=== PATIENT | female | born 1980 | race Caucasian/White ===

== ENCOUNTER 2020-12-25 13:23 | Emergency (ER) | payer OTHER ==
[~2020-12-25] VITALS: Ht 160 cm; Wt 104.3 kg
[2020-12-25 13:23] VITALS: BP_SYST 136
[2020-12-25] MEDS ORDERED: NACL 0.9% 1,000 ML IV ONE ×2 (13:45→15:15)
[2020-12-25 13:59] LABS: BASOPHILS % (AUTO) 0.3 % (0.0-2.0); EOSINOPHILS # (AUTO) 0.2 K/uL (0.0-0.4); EOSINOPHILS % (AUTO) 4.6 % (0.0-4.0); HEMATOCRIT 29.2 % (36-48); HEMOGLOBIN 10.1 g/dL (12.0-16.0); LYMPHOCYTES # (AUTO) 0.6 K/uL (1.0-5.5); LYMPHOCYTES % (AUTO) 10.9 % (20.5-51.5); MEAN CORPUSCULAR HEMOGLOBIN 31 pg (27-31); MEAN CORPUSCULAR HGB CONC 35 % (32-36); MEAN CORPUSCULAR VOLUME 91 fL (79.0-98.0); MONOCYTES # (AUTO) 0.6 K/uL (0.0-1.0); MONOCYTES % (AUTO) 10.7 % (1.7-9.3); NEUTROPHILS # (AUTO) 3.9 K/uL (1.8-7.7); NEUTROPHILS % (AUTO) 73.5 % (40.0-70.0); PLATELET COUNT (AUTO) 182 K/uL (130-430); RED BLOOD CELL COUNT(AUTO) 3.22 MIL/uL (4.2-6.2); RED CELL DISTRIBUTION WIDTH 13.9 % (9.0-15.0); WHITE BLOOD COUNT (AUTO) 5.3 K/uL (4.8-10.8)
[2020-12-25 14:14] LABS: CALCIUM 8.1 mg/dL (8.4-11.0); INR 0.9 (0.8-1.2); POTASSIUM 4.7 mmol/L (3.5-5.1); PROTHROMBIN TIME 9.3 SECS (9.5-12.5)
[2020-12-25] MEDS ORDERED: ONDANSETRON HCL 4 MG/2 ML VIAL IVP ONE (14:15)
[2020-12-25 14:28] LABS: ALBUMIN 2.8 g/dL (3.4-4.8); TOTAL BILIRUBIN 0.6 mg/dL (0.0-1.0)
[2020-12-25 14:30] LABS: CREATININE 10.85 mg/dL (0.55-1.30)
[2020-12-25] MEDS ORDERED: MORPHINE 2 MG/ML INJ. SYRINGE IVP ONE ×2 (14:45→15:30)
[2020-12-25] MEDS ORDERED: ONDA-8 TL (15:48)
[2020-12-25 16:27] VITALS: BP_SYST 124
== END 2020-12-25 16:27 | disposition home or self-care (01) ==
LOC: SED 13:23
DX: R11.2 Nausea with vomiting, unspecified (principal); R19.7 Diarrhea, unspecified; E11.22 Type 2 diabetes mellitus with diabetic chronic kidney disease; I13.2 Hypertensive heart and chronic kidney disease with heart failure and with stage 5 chronic kidney disease, or end stage renal disease; E11.65 Type 2 diabetes mellitus with hyperglycemia; N18.6 End stage renal disease; I50.9 Heart failure, unspecified; Z99.2 Dependence on renal dialysis; Z88.8 Allergy status to other drugs, medicaments and biological substances
CPT/HCPCS: 36415; 71045; 80053; 82962; 83605; 84484; 85025; 85610; 85730; 87040; 93005; 96361; 96374; 96375; 96376; 99285; J2270; J2405; J7030